=== PATIENT | male | born 1955 | race Caucasian/White ===

== ENCOUNTER 2022-12-24 09:42 | Outpatient (OUT) | payer MEDICARE, SELFPAY ==
[2022-12-24 10:26] LABS: Basophils Percent Auto 0.5 % (0.2-2.0); Eosinophils Absolute Auto 0.2 10^3/uL (0.0-0.7); Eosinophils Percent Auto 2.2 % (0.9-7.0); Hematocrit 41.8 % (42.0-54.0); Hemoglobin 13.8 g/dL (14.0-18.0); Immature Granulocytes Abs Auto 0.03 10^3/uL (0.00-0.03); Immature Granulocytes Pct Auto 0.4 % (0.0-0.5); Lymphocytes Absolute Auto 1.6 10^3/uL (1.2-3.8); Lymphocytes Percent Auto 19.7 % (20.5-60.0); Mean Corpuscular Hemoglobin 31.8 pg (25.9-34.0); Mean Corpuscular Volume 96.3 fL (80.0-94.0); Mean Platelet Volume 10.7 fL (9.5-13.5); Monocytes Absolute Auto 0.6 10^3/uL (0.3-0.8); Monocytes Percent Auto 6.9 % (1.7-12.0); Neutrophils Absolute Auto 5.8 10^3/uL (1.4-6.5); Neutrophils Percent Auto 70.3 % (43.0-75.0); Platelet Count 234 10^3/uL (150-450); Red Blood Count 4.34 10^6/uL (4.70-6.10); Red Cell Distribution Width 12.8 % (11.0-15.0); White Blood Count 8.3 10^3/uL (4.0-11.0)
[2022-12-24 10:41] LABS: Estimated Average Glucose 105 mg/dL; Glycohemoglobin A1C 5.3 % (4.5-6.2)
[2022-12-24 10:53] LABS: Alanine Aminotransferase 30 U/L (16-63); Albumin Level 3.8 g/dL (3.4-5.0); Alkaline Phosphatase 61 U/L (46-116); Anion Gap 11.1; Aspartate Amino Transferase 23 U/L (15-37); BUN Creatinine Ratio 23.7; Bilirubin Total 0.5 mg/dL (0.2-1.0); Calcium 9.1 mg/dL (8.5-10.1); Carbon Dioxide 26.8 mmol/L (21.0-32.0); Chloride 107 mmol/L (98-107); Chol HDL Ratio 3.9; Cholesterol 178 mg/dL (<=200); Estimated GFR (African America >60 (>=60); Estimated GFR (Non-African Ame >60 (>=60); Globulin 3.7 g/dL; Glucose 103 mg/dL (74-106); HDL Cholesterol 46 mg/dL (40-60); LDL Cholesterol Calculated 110.6 mg/dL; Potassium 4.9 mmol/L (3.5-5.1); Sodium 140 mmol/L (136-145); Thyroid Stimulating Hormone 2.363 uIU/mL (0.358-3.740); Total Protein 7.5 g/dL (6.4-8.2); Triglycerides 107 mg/dL (<=150); VLDL CHOLESTEROL 21.4 mg/dL
[2022-12-24 11:31] LABS: Free T4 0.73 ng/dL (0.76-1.46)
[2022-12-24 11:37] LABS: Prostate Specific Antigen Scrn 0.78 ng/mL (<=4.00)
== END 2022-12-24 09:43 | disposition home or self-care (01) ==
LOC: LAB 09:46
PROVIDERS: PCP Family Medicine; Visit Provider Family Medicine
DX: E11.9 Type 2 diabetes mellitus without complications (principal); R73.09 Other abnormal glucose; Z12.5 Encounter for screening for malignant neoplasm of prostate; Z12.12 Encounter for screening for malignant neoplasm of rectum; M25.50 Pain in unspecified joint
CPT/HCPCS: 36415; 80053; 80061; 83036; 84436; 84439; 84443; 85025; G0103

== ENCOUNTER 2024-11-02 09:17 | Outpatient (OUT) | payer MEDICARE, SELFPAY ==
[2024-11-02 10:01] LABS: Basophils Percent Auto 0.6 % (0.2-2.0); Eosinophils Absolute Auto 0.2 10^3/uL (0.0-0.7); Eosinophils Percent Auto 3.3 % (0.9-7.0); Hematocrit 40.6 % (42.0-54.0); Hemoglobin 13.6 g/dL (14.0-18.0); Immature Granulocytes Abs Auto 0.04 10^3/uL (0.00-0.03); Immature Granulocytes Pct Auto 0.6 % (0.0-0.5); Lymphocytes Absolute Auto 1.7 10^3/uL (1.2-3.8); Lymphocytes Percent Auto 25.3 % (20.5-60.0); Mean Corpuscular HGB Conc 33.5 g/dL (29.9-35.2); Mean Corpuscular Hemoglobin 32.5 pg (25.9-34.0); Mean Corpuscular Volume 96.9 fL (80.0-94.0); Mean Platelet Volume 10.3 fL (9.5-13.5); Monocytes Absolute Auto 0.6 10^3/uL (0.3-0.8); Monocytes Percent Auto 8.4 % (1.7-12.0); Neutrophils Absolute Auto 4.1 10^3/uL (1.4-6.5); Neutrophils Percent Auto 61.8 % (43.0-75.0); Platelet Count 249 10^3/uL (150-450); Red Blood Count 4.19 10^6/uL (4.70-6.10); Red Cell Distribution Width 12.6 % (11.0-15.0); White Blood Count 6.6 10^3/uL (4.0-11.0)
[2024-11-02 10:11] LABS: Estimated Average Glucose 114 mg/dL; Glycohemoglobin A1C 5.6 % (4.5-6.2)
[2024-11-02 10:51] LABS: Alanine Aminotransferase 26 U/L (16-63); Albumin Globulin Ratio 1.1; Albumin Level 3.5 g/dL (3.4-5.0); Alkaline Phosphatase 58 U/L (46-116); Anion Gap 11.8; Aspartate Amino Transferase 18 U/L (15-37); BUN Creatinine Ratio 20.2; Bilirubin Total 0.5 mg/dL (0.2-1.0); Calcium 8.8 mg/dL (8.5-10.1); Carbon Dioxide 26.6 mmol/L (21.0-32.0); Chloride 106 mmol/L (98-107); Chol HDL Ratio 3.6; Cholesterol 176 mg/dL (<=200); Estimated GFR (African America >60 (>=60 mL/min/1.73m^2); Estimated GFR (Non-African Ame >60 (>=60 mL/min/1.73m^2); Free T3 2.42 pg/mL (2.18-3.98); Globulin 3.2 g/dL; Glucose 102 mg/dL (74-106); HDL Cholesterol 49 mg/dL (40-60); LDL Cholesterol Calculated 111.2 mg/dL; Potassium 4.4 mmol/L (3.5-5.1); Sodium 140 mmol/L (136-145); Thyroid Stimulating Hormone 3.632 uIU/mL (0.358-3.740); Total Protein 6.7 g/dL (6.4-8.2); Triglycerides 79 mg/dL (<=150); VLDL CHOLESTEROL 15.8 mg/dL
[2024-11-02 10:55] LABS: Prostate Specific Antigen Scrn 0.74 ng/mL (<=4.00)
== END 2024-11-02 09:18 | disposition home or self-care (01) ==
LOC: LAB 09:20
PROVIDERS: PCP Family Medicine; Visit Provider Family Medicine
DX: R00.2 Palpitations (principal); E11.9 Type 2 diabetes mellitus without complications; Z12.5 Encounter for screening for malignant neoplasm of prostate; M54.16 Radiculopathy, lumbar region
CPT/HCPCS: 36415; 80053; 80061; 83036; 84436; 84443; 84481; 85025; G0103

== ENCOUNTER 2024-11-04 11:15 | Outpatient (REF) | payer MEDICARE, SELFPAY ==
[2024-11-04 13:42] LABS: Internal Control Within Normal Limits; Occult Blood Positive
== END 2024-11-04 11:16 | disposition home or self-care (01) ==
LOC: LAB 11:15
PROVIDERS: PCP Family Medicine; Visit Provider Family Medicine
DX: R00.2 Palpitations (principal); E11.9 Type 2 diabetes mellitus without complications; M54.16 Radiculopathy, lumbar region
CPT/HCPCS: G0328

== ENCOUNTER 2024-11-24 10:35 | Outpatient (OUT) | payer MEDICARE, SELFPAY ==
--- OUTSIDE RECORDS SUMMARY | 2024-11-24 10:37 | XMS_ITS | Encounter Summary ---
Author Organization [facility] Address [address] [place] [address] Care Team Providers Care Fabricator Foam Rubber Name Role Phone Unavailable Primary Care Provider Unavailabl e Source Comments In the event this information is protected by the Federal Confidentiality of Alcohol and Drug AbusePatient Records regulations: The Federal rules restrict any use of the information to criminally investigate or prosecute any alcohol or drug abuse patient.[facility] Encounter Details Date Type Department Care Team (Late st Contact Info) Description 2021 [place] [address] Provider, [facility] Medicare Coverage of Physical Exams Social History Tobacco Use Types Packs/Day Years Used Date Smoking Tobacco: Never Smokeless Tobacco: Never Alcohol Use Standard Drinks/Week Comments Not Currently 0 (1 standard drink = 0.6 oz pur e alcohol) PHQ-2 Answer Date Recorded PHQ-2 score 0 09/18/2021 Sex and Gender Information Value Date Recorded Sex Assigned at Male 08/03/2021 4:29 PM EST Legal Sex Male 3:44 PM EST Gender Identity Male 08/03/2021 4:29 PM EST Sexual Orientation Straight 08/03/2021 4: 29 PM EST documented as of this encounter Plan of Treatment Not on file documented as of this encounter Visit Diagnoses Not on filedocumented in this encounter
--- OUTSIDE RECORDS SUMMARY | 2024-11-24 10:38 | XMS_ITS | Encounter Summary ---
Author Organization [facility] Rodriguezsoph[facility] Address [address] [place] [address] Care Team Providers Care Clothing Patternmaker Name Role Phone Ashutosh Faclon MD Primary Care Provider [phone] Encounter Details Date Type Department Care Team (Late st Contact Info) Description 01/14/2013 Post-op Telephone [facility] General Surgery [address] [place], [place] [id number] Romy Santana RN Social History Tobacco Use Types Packs/Day Years Used Date Smoking Tobacco: Never Alcohol Use Standard Drinks/Week Comments No 0 (1 standard drink = 0.6 oz pur e alcohol) Sex and Gender Information Value Date Recorded Sex Assigned at Not on file Legal Sex Male 5:45 PM EST Gender Identity Not on file Sexual Orientation Not on file documented as of this encounter Plan of Treatment Not on file documented as of this encounter Visit Diagnoses Not on filedocumented in this encounter Care Teams Clothing Patternmaker Relationship Specialty Start Date End Date Ashutosh Falcon MD [address] [place] [address] PCP - General 01/12/13 documented as of this encounter
--- OUTSIDE RECORDS SUMMARY | 2024-11-24 10:38 | XMS_ITS | Clinical Summary ---
Author Organization [facility] Address [address] [place] [address] Care Team Providers Care Manager Plumbing Name Role Phone Unavailable Primary Care Provider Unavailabl e Allergies No known active allergies Medications diclofenac, EC, (VOLTAREN) 75 mg EC tablet 07/12/2021 Active minocycline (MINOCIN, DYNACIN) 100 mg capsule 07/12/2021 Active tiZANidine (ZANAFLEX) 4 mg tablet Take 8 mg by mouth daily at bedtime. 07/03/2021 Active gabapentin (NEURONTIN) 300 mg capsule Take 1 capsule by mouth three times daily for 30 days. 90 capsule 08/03/2021 Active Immunizations Immunization Administration Dates Next Due COVID-19 vaccine (ARAVIND) 05/03/2021,08/31/2020 Social History Tobacco Use Types Packs/Day Years [...] Orientation Straight 08/03/2021 4: 29 PM EST Last Filed Vital Signs Vital Sign Reading Time Taken Comments Blood Pressure 162/91 08/03/2021 11:25 AM EST patient states he is feeling anxious Pulse 76 08/03/2021 11:25 AM EST Temperature - - Respiratory Rate 16 08/03/2021 11:2 5 AM EST Oxygen Saturation 97% 08/03/2021 11: 25 AM EST Inhaled Oxygen Concentration - - Weight 118.8 kg (262 lb) 08/03/2021 11: 25 AM EST Height 179.1 cm (5' 10.5 ) 08/03/2021 1 1:25 AM EST Body Mass Index 37.06 08/03/2021 11:25 AM EST Plan of Treatment Health Maintenance Due Date Last Done Comments Anxiety Screening 1974 Depression Screening 1974 Hepatitis C Screening 1974 DTaP,Tdap,Td Vaccine (1 - Tdap) 10/27/1975 Lipid Screening 10/27/1991 CT Colonography 2001 Cologuard (FIT-DNA) 2001 Colonoscopy 2001 Colorectal Cancer Screening 2001 Fecal Occult Blood 2001 Prostate Cancer Screening Discussion 2001 Sigmoidoscopy 2001 Diabetes Screening 06/11/2021 06/11/2018, 1 08/11/2017, 06/09/2018 Shingrix Vaccine (2 of 2) 07/03/2021 05/08/2021 Pneumococcal Vaccine: 50+ (2 of 2 - PPSV23) 06/14/2022 06/14/2021 Covid-19 Vaccine (3 - season) 02/23/202403/2021, 08/31/2020 Advance Directive Discussion 06/24/2024 Influenza Vaccine (Season Ended) 2025 05/08/20 21 RSV Vaccine (1 - 1-dose 75+ series) 10/27/2031 Insurance MMO [employer]
--- OUTSIDE RECORDS SUMMARY | 2024-11-24 10:38 | XMS_ITS | Clinical Summary ---
Author Organization Jaxson Guerrero [facility] Address [address] [place] [address] Care Team Providers Care Fleet Sales Associate Name Role Phone Ashutosh Falcon MD Primary Care Provider [phone] Allergies No known active allergies Medications cyclopentolate (CYCLOGYL) 2 % ophthalmic solution Place 1 drop into the right eye 2 times daily. 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 Social History Tobacco Use Types Packs/Day Years Used Date Smoking Tobacco: Never Alcohol Use Standard Drinks/Week Comments No 0 (1 standard drink = 0.6 oz pur e alcohol) Sex and Gender Information Value Date Recorded Sex Assigned at Not on file Legal Sex Male 5:45 PM EST Gender Identity Not on file Sexual Orientation Not on file Last Filed Vital Signs Vital Sign Reading Time Taken Comments Blood Pressure 142/87 06/11/2018 11:00 AM EST Pulse 71 06/11/2018 11:00 AM EST Temperature 36.9 C (98.4 F) 06/11/2018 11:00 AM EST Respiratory Rate 16 06/11/2018 11:0 0 AM EST Oxygen Saturation 96% 06/11/2018 2:53 AM EST Inhaled Oxygen Concentration - - Weight 125.4 kg (276 lb 7.3 oz) 06/10/2018 5:45 AM EST Height 180.3 cm (5' 11 ) 06/09/2018 12: 45 AM EST Body Mass Index 38.56 06/09/2018 12:45 AM EST Plan of Treatment Not on file Insurance Advance Directives * Full Code (Latest Code Status on File) Date Activated Date Inactivated Comments 06/09/2018 1:22 AM 06/11/2018 3:22 PM Care Teams Fleet Sales Associate Relationship Specialty Start Date End Date Ashutosh Falcon MD [address] [place] [address] PCP - General 01/12/13
== END 2024-11-24 10:36 | disposition home or self-care (01) ==
LOC: PST 10:35
PROVIDERS: PCP Family Medicine; Visit Provider Surgery
DX: Z01.818 Encounter for other preprocedural examination (principal); R19.5 Other fecal abnormalities; Z12.11 Encounter for screening for malignant neoplasm of colon

== ENCOUNTER 2024-12-02 08:02 | Day surgery (SDC) | payer MEDICARE, SELFPAY ==
--- OUTSIDE RECORDS SUMMARY | 2024-11-02 10:15 | XMS_ITS ---
Author Organization [facility] in [place] Address [address] [place] [address] Care Team Providers Care Field Test Engineer Name Role Phone José Falcon Primary Care Provider REASON FOR VISIT review labs Problems Problem Type SNOMED Code ICD Code Onset Dates Problem Status W/U Status Risk Notes Problem Laboratory test result abnormal ([id number]) Abnormal laboratory test result (R89.9) Active confirmed Encounters Encounter Location Date Provider Diagnosis [facility] [address] [place] [address] 11/02/2024 José Falcon Abnormal laboratory test result R89.9 Assessments Encounter Date Diagnosis (ICD Code) Assessment Notes Treatment Notes Treatment Clinical Notes Section Notes 11/02/2024 Abnormal laboratory test result (ICD-10 - R89.9) Plan Of Treatment Pending Test Test Name Order Date THYROID PANEL (T4/TSH/FREE T3) Progress Notes * Mor MALLOY BDOB: [birth year] (69 yo M)Acc No.[id number]:11/02/2024 Patient: Jacqueline MEZA Mor Monroy :1955 A ge:69 Y S ex:Male Address:[address] [place] [address] Subjective: * Chief Complaints: * R eview labs * Medical History: * Surgical History: * Hospitalization/Major Diagno stic Procedure: * Medications: Objective: * Vitals: * Physical Examination: Assessment: * Assessment: 1. A bnormal laboratory test result - R89.9 (Primary) Plan: * Treatment: * Procedure Codes: * true * Date: Generated for Gallito weaver/Erica/Yazan on: 12/02/2024 08:05 AM EDT
--- OUTSIDE RECORDS SUMMARY | 2024-11-04 15:34 | XMS_ITS ---
Author Organization [facility] in [place] Address [address] [place] [address] Care Team Providers Care Real Estate Associate Name Role Phone MingJosé barrett Primary Care Provider [phone] Reason For Referral Diagnosis 1 Positive occult stoo l blood test (R19.5) Referral Organization [facility] Referring Provider First Name José Referring Provider Last Name Terrie Referring Provider [facility] dalia Referred Provider Samy Caldera Referred Provider Specialty General Surg promise Referral Priority Routine REASON FOR VISIT stool test Encounters Encounter Location Date Provider Diagnosis [facility] [address] [place] [address] 11/04/2024 José Falcon Positive occult stoo l blood test R19.5 Assessments Encounter Date Diagnosis (ICD Code) Assessment Notes Treatment Notes Treatment Clinical Notes Section Notes 11/04/2024 Positive occult stool blood test (ICD-10 - R19.5) Plan Of Treatment Referrals Referral Date Details 11/05/2024 11/05/2024Samy Progress Notes * oMr TURCIOS BDOB: [birth year] (69 yo M)Acc No.[id number]:11/04/2024 Patient: Jacqueline Mor MEZA :1955 A ge:69 Y S ex:Male Address:[address] [place] [address] Subjective: * Chief Complaints: * S tool test * Medical History: * Surgical History: * Hospitalization/Major Diagno stic Procedure: * Medications: Objective: * Vitals: * Physical Examination: Assessment: * Assessment: 1. P ositive occult stool blood test - R19.5 (Primary) Plan: * Treatment: * Procedure Codes: * true * Date: Generated for Gallito weaver/Erica/Ivonneitting on: 0 12/02/2024 08:05 AM EDT Consultation Request Notes Referral Date Referring Provider Referred Provider Not es 11/05/2024 José Falcon Michael
--- OUTSIDE RECORDS SUMMARY | 2024-11-16 08:09 | XMS_ITS ---
Author Organization The [facility] in [place] Address [address] [place] [address] Care Team Providers Care Head Sampler Name Role Phone José Falcon Primary Care Provider REASON FOR VISIT Update Demographics - Additional Info Encounters Encounter Location Date Provider Diagnosis [facility] [address] [place] [address] 11/16/2024 José Falcon Plan Of Treatment No Information Progress Notes * Mor MALLOY BDOB: [birth year] (69 yo M)Acc No.[id number]:11/16/2024 Patient: Jacqueline REIDMaxMor :1955 A ge:69 Y S ex:Male Address:[address] [place] [address] * true * Date: Generated for Mitcheli ng/Faghassang/eTransmitting on: 0 12/02/2024 08:04 AM EDT
--- NOTE | 2024-12-02 | OP_ITS ---
OPERATION DATE: 12/02/2024 PREOPERATIVE DIAGNOSIS: Positive fecal occult blood test. POSTOPERATIVE DIAGNOSIS: Normal colonoscopy to cecum, fair prep. PROCEDURE: Colonoscopy to cecum. SURGEON: Samy Caldera M.D. ANESTHESIA: Monitored anesthesia care. ESTIMATED BLOOD LOSS: Zero. INDICATIONS AND CONSENT: Patient is a 69-year-old male, presents for colorectal screening after positive fecal occult blood test. Indications, risks, benefits, alternatives of proceeding with colonoscopy were explained extensively to the patient, including the risks of bleeding, colon perforation or anesthetic complications. All of his questions were answered. Informed consent was obtained. PROCEDURE: Patient brought to the operating room, placed in the left lateral decubitus position. Monitored anesthesia care was provided. Rectal exam was performed which revealed no masses or blood. The scope was inserted into the anal canal. Under direct visualization was advanced. With the aid of abdominal compression, it was advanced to the cecum where cecal markings were clearly identified. There was noted to be a fair prep with liquid and particulate matter throughout the colon that was able to be partially irrigated clear. There were no mass lesions or polyps. No inflammatory changes or ulcerations. No significant diverticulosis. The scope was retroflexed in the anal canal. There was no significant hemorrhoidal disease. Scope was then withdrawn. Patient tolerated procedure well, was sent to recovery room in good condition.f/u screening colonoscopy should be in 10 years. CC: Tashi Beck
--- OUTSIDE RECORDS SUMMARY | 2024-12-02 08:06 | XMS_ITS | Patient Health Record ---
Author Organization [facility] in [place] Address [address] [place] [place] [address] Care Team Providers Care Lead Android Developer Name Role Phone José Falcon Primary Care Provider Allergies No Known Allergies Results Component Value Reference Range Notes GLYCOHEMOGLOBIN A1C Reviewed date:11/02/2024 02:16:28 PM Interpretation: Performing Lab: Notes/Report: [facility] , Glycohemoglobin A1C 5.6 4.5-6.2 % ADA THERAPEUTIC TARGET < 7.0 ADA RECOMMENDED LIMIT 4.0 - 6.0 > 7.0 ACTION SUGGESTED Estimated Average Glucose 114 Performing Lab: see note ML - [facility] LB TSH Reviewed date:11/02/2024 02:16:28 PM Interpretation: Performing Lab: Notes/Report: [facility] , Thyroid Stimulating Hormone 3.632 0.358-3.740 u IU/mL Performing Lab: see note ML - [facility] LB T4 Reviewed date:11/02/2024 02:16:28 PM Interpretation: Performing Lab: Notes/Report: [facility] , T4 Thyroxine 4.40 4.50-12.10 ug/dL Performing Lab: see note ML - [facility] LB LIPID PROFILE Reviewed date:11/02/2024 02:16:28 PM Interpretation: Performing Lab: Notes/Report: [facility] , Triglycerides 79 <=150 mg/dL Cholesterol 176 <=200 mg/dL HDL Cholesterol 49 40-60 mg/dL > or =60 mg/dl - LOW CARDIOVASCULAR RISK <40 mg/dl - HIGH CARDIOVASCULAR RISK LDL Cholesterol Calculated 111.2 130-159 mg/dl BORDERLINE HIGH 100-129 mg/dl NEAR OR ABOVE OPTIMAL >190 mg/dl VERY HIGH <100 mg/dl OPTIMAL 160-189 mg/dl HIGH VLDL CHOLESTEROL 15.8 Chol HDL Ratio 3.6 3.3 - 4.4 LOW RISK 7.1 - 11.0 MODERATE RISK 4.4 - 7.1 AVERAGE RISK >11.0 HIGH RISK Performing Lab: see note ML - [facility] LB FREE T3 Reviewed date:11/02/2024 02:16:27 PM Interpretation: Performing Lab: Notes/Report: [facility] , Free T3 2.42 2.18-3.98 pg/mL Performing Lab: see note ML - [facility] LB CBC AUTO DIFF Reviewed date:11/02/2024 02:16:27 PM Interpretation: Performing Lab: Notes/Report: [facility] , White Blood Count 6.6 4.0-11.0 10 3/uL Red Blood Count 4.19 4.70-6.10 10 6/uL Hemoglobin 13.6 14.0-18.0 g/dL Hematocrit 40.6 42.0-54.0 % Mean Corpuscular Volume 96.9 80.0-94.0 fL Mean Corpuscular Hemoglobin 32.5 25.9-34.0 pg Mean Corpuscular HGB Conc 33.5 29.9-35.2 g/dL Red Cell Distribution Width 12.6 11.0-15.0 % Platelet Count 249 150-450 10 3/uL Mean Platelet Volume 10.3 9.5-13.5 fL Neutrophils Percent Auto 61.8 43.0-75.0 % Lymphocytes Percent Auto 25.3 20.5-60.0 % Monocytes Percent Auto 8.4 1.7-12.0 % Eosinophils Percent Auto 3.3 0.9-7.0 % Basophils Percent Auto 0.6 0.2-2.0 % Immature Granulocytes Pct Auto 0.6 0.0-0.5 % Neutrophils Absolute Auto 4.1 1.4-6.5 10 3/uL Lymphocytes Absolute Auto 1.7 1.2-3.8 10 3/uL Monocytes Absolute Auto 0.6 0.3-0.8 10 3/uL Eosinophils Absolute Auto 0.2 0.0-0.7 10 3/uL Basophils Absolute Auto 0.0 0.0-0.1 10 3/uL Immature Granulocytes Abs Auto 0.04 0.00-0.03 10 3/uL Performing Lab: see note ML - [facility] LB Occult Blood* Reviewed date:11/04/2024 07:34:44 PM Interpretation: Performing Lab: Notes/Report: [facility] , Occult Blood Positive Performing Lab: see note - [facility] PSA SCREENING Reviewed date:11/02/2024 02:16:28 PM Interpretation: Performing Lab: Notes/Report: [facility] , Prostate Specific Antigen Scrn 0.74 <=4.00 ng/mL Performing Lab: see note - [facility] PROF 14(COMP METB) Reviewed date:11/02/2024 02:16:28 PM Interpretation: Performing Lab: Notes/Report: [facility] , Sodium 140 136-145 mmol/L Potassium 4.4 3.5-5.1 mmol/L Chloride 106 98-107 mmol/L Carbon Dioxide 26.6 21.0-32.0 mmol/L Anion Gap 11.8 Glucose 102 74-106 mg/dL Blood Urea Nitrogen 19.0 7.0-18.0 mg/dL Creatinine 0.94 0.70-1.30 mg/dL Estimated GFR ( Verenice >60 >=60 mL/min/1.73m 2 Estimated GFR (Non- Vanessa >60 >=60 mL/min/1.73m 2 BUN Creatinine Ratio 20.2 Calcium 8.8 8.5-10.1 mg/dL Bilirubin Total 0.5 0.2-1.0 mg/dL Aspartate Amino Transferase 18 15-37 U/L Alanine Aminotransferase 26 16-63 U/L Alkaline Phosphatase 58 46-116 U/L Total Protein 6.7 6.4-8.2 g/dL Albumin Level 3.5 3.4-5.0 g/dL Globulin 3.2 Albumin Globulin Ratio 1.1 Performing Lab: see note ML - [facility] Reason For Referral Diagnosis 1 Positive occult stoo l blood test (R19.5) Referral Organization [facility] Referring Provider First Name José Referring Provider Last Name Terrie Referring Provider Speciality Family Med dalia Referred Provider Samy Caldera Referred Provider Specialty General Surg promise Referral Priority Routine Medications Medication SIG (Take, Route, Fr equency, Duration) Notes Start Date End Date Status Baclofen 20 MG TAKE ONE TO TWO TABL ETS BY MOUTH AT BEDTIME for 90 Active Diclofenac Sodium 75 MG TAKE 1 TABLET TW ICE A DAY for 90 days Active Social History Tobacco Use: Social History Observation Description Date Details (start date - stop date) Never Smoker NA - NA Tobacco Use/Smoking Question Answer Notes Patient is a nonsmoker Alcohol Screen (Audit-C) Question Answer Notes Did you have a drink containing alcohol in the p ast year? No Points 0 Interpretation Negative AUDIT-C (Standard) Question Answer Notes Did you have a drink containing alcohol in the p ast year? No Points 0 Interpretation Negative Problems Problem Type SNOMED Code ICD Code Onset Dates Problem Status W/U Status Risk Notes Problem Attention deficit hyperactivity disorder (097789795) ADHD (attention deficit hyperactivity disorder) (314.01) Active confirmed Problem Palpitations (06729674) Palpitations (R00.2) Active confirmed Problem Eczema (59608676) Eczema (L30.9) Active confirm ed Problem Lumbar radiculopathy (726350974) Radiculopathy of lumbar region (M54.16) Active confirmed Problem Arthralgia (85431675) Arthralgia (M25.50) Active confirmed Problem Localized, primary osteoarthritis of the pelvic region and thigh (009080816) Primary osteoarthritis of left hip (M16.12) Active confirmed Problem Acne rosacea (616672573) Acne rosacea (L71.9) Active confirmed Problem Laboratory test result abnormal (732500337) Abnormal laboratory test result (R89.9) Active confirmed Problem Osteoarthritis of knee (294507741) Knee osteoarthritis (M17.10) Active confirmed Problem Diabetes mellitus (55803213) Diabetes mellitus (E11.9) Active confirmed Problem 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, 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 Vital Signs Blood pressure diastolic 86 mm Hg 11/02/2024 Height 70 in 11/02/2024 Blood pressure systolic 138 mm Hg 11/02/2024 Weight 257 lbs 11/02/2024 BMI 36.87 kg/m2 11/02/2024 Encounters Encounter Location Date Provider Diagnosis [facility] [address] [place] [address] 01/13/2024 José Falcon [facility] [address] [facility] [place] [address] 04/08/2024 José Falcon [facility] [address] [facility] [place] [address] 11/02/2024 José Falcon Abnormal laboratory test result R89.9 [facility] [address] [place] [address] 11/04/2024 José Falcon Positive occult stoo l blood test R19.5 [facility] [address] [facility] [place] [address] 11/16/2024 José Falcon [facility] [address] [place] [address] 11/02/2024 José Falcon Palpitations R00.2 ; Diabetes mellitus E11.9 and Radiculopathy of lumbar region M54.16 Assessments Encounter Date Diagnosis (ICD Code) Assessment Notes Treatment Notes Treatment Clinical Notes Section Notes 11/02/2024 Palpitations (ICD-10 - R00.2) 11/02/2024 Diabetes mellitus (ICD-10 - E11.9) 11/02/2024 Abnormal laboratory test result (ICD-10 - R89.9) 11/04/2024 Positive occult stool blood test (ICD-10 - R19.5) 11/02/2024 Radiculopathy of lumbar region (ICD-10 - M54.16) Plan Of Treatment Pending Test Test Name Order Date CMP (COMPLETE METABOLIC PANEL) 3 HEMOGLOBIN A1C (GLYCO) 12/24/2022 HEMOGLOBIN A1C (GLYCO) 11/02/2024 LIPID PANEL (CHOL/TRIG/HDL/LDL) 11/03/19 25 LIPID PANEL (CHOL/TRIG/HDL/LDL) 12/25/19 23 CBC WITH DIFF 12/24/2022 PSA, PROSTATE-SPECIFIC ANTIGEN 3 STOOL OCCULT BLOOD 12/24/2022 STOOL OCCULT BLOOD 11/02/2024 THYROID PANEL (T4/TSH/FREE T3) 5 THYROID PANEL (T4/TSH/FREE T3) 5 THYROID PANEL (T4/TSH/FREE T3) 3 PSA, SCREENING 11/02/2024 CMP (COMP MET SHEETS) w/eGFR CKD-EPI 2024 CBC WITH DIFF 11/02/2024 Insurance Providers Payer Name Payer Address Payer Phone Subscriber Number Group Number Insured Name Patient Relationship to Insured Coverage Start Date Coverage End Date [employer] PPO PLUS LOCAL PLAN [address] [place] [address] [phone] [id number] Mor Malloy Self - patient is the insured Medical (General) History Medical History History ICD Code Acne rosacea L71.9 ADHD (attention deficit hyperactivity di sorder) 314.01 Amputation of finger without complicatio n, initial encounter S68.119A Arthralgia M25.50 Eczema L30.9 Diabetes mellitus E11.9 Palpitations R00.2 Shingles B02.9 spondylolisthesis rheumatic fever Surgical History Surgery Date(Month/Year) Cataract Extraction Right Meniscus Repair Rt rotator cuff repair Lt rotator cuff repair history of tonsillectomy right total knee arthroplasty, surgeon Austin Jensen
[2024-12-02 08:10] VITALS: BP 108/71; PULSE 71; TEMP 36.2; O2SAT 98; BMI 34.2
[2024-12-02] MEDS: 0.9 % SODIUM CHLORIDE 500 ML 50 ML IV ×2 (08:25→10:11)
[2024-12-02 10:14] VITALS: BP 105/73; PULSE 80; O2SAT 95
[2024-12-02 10:29] VITALS: BP 111/68; PULSE 65; O2SAT 95
== END 2024-12-02 11:20 | disposition home or self-care (01) ==
LOC: SURGOUT 08:03
PROVIDERS: PCP Family Medicine; Visit Provider Surgery
PROC: (CPT 45378; principal; 2024-12-02 09:20)
DX: R19.5 Other fecal abnormalities (principal); M47.816 Spondylosis without myelopathy or radiculopathy, lumbar region; L30.9 Dermatitis, unspecified; Z96.619 Presence of unspecified artificial shoulder joint
CPT/HCPCS: 45378; J2704

== ENCOUNTER 2024-12-10 12:21 | Outpatient (OUT) | payer MEDICARE, SELFPAY ==
--- OUTSIDE RECORDS SUMMARY | 2024-11-02 10:15 | XMS_ITS ---
Author Organization The [facility] in [place] Address [address] [place] [address] Care Team Providers Care Tax Technician Name Role Phone José Falcon Primary Care Provider REASON FOR VISIT review labs Problems Problem Type SNOMED Code ICD Code Onset Dates Problem Status W/U Status Risk Notes Problem Abnormal laboratory test result (R89.9) Active confirmed Encounters Encounter Location Date Provider Diagnosis [facility] [address] [place] [address] 11/02/2024 José Falcon Abnormal laboratory test result R89.9 Assessments Encounter Date Diagnosis (ICD Code) Assessment Notes Treatment Notes Treatment Clinical Notes Section Notes 11/02/2024 Abnormal laboratory test result (ICD-10 - R89.9) Plan Of Treatment Pending Test Test Name Order Date THYROID PANEL (T4/TSH/FREE T3) Progress Notes * Mor MALLOY BDOB: [birth year] (69 yo M)Acc No.[id number]:11/02/2024 Patient: Jacqueline MEZA Mor Monroy :1955 A ge:69 Y S ex:Male Address:[address] [place] [address] Subjective: * Chief Complaints: * R eview labs * Medical History: * Surgical History: * Hospitalization/Major Diagno stic Procedure: * Medications: Objective: * Vitals: * Physical Examination: Assessment: * Assessment: 1. A bnormal laboratory test result - R89.9 (Primary) Plan: * Treatment: * Procedure Codes: * true * Date: Generated for Gallito waever/Erica/Yazan on: 0 12/10/2024 12:25 PM EDT
--- OUTSIDE RECORDS SUMMARY | 2024-11-04 15:34 | XMS_ITS ---
Author Organization [facility] in [place] Address [address] [place] [address] Care Team Providers Care Frame Coverer Name Role Phone MingJosé barrett Primary Care Provider Reason For Referral Diagnosis 1 Positive occult stoo l blood test (R19.5) Referral Organization [facility] Referring Provider First Name José Referring Provider Last Name Terrie [facility] dalia Referred Provider Samy Caldera Referred Provider Specialty General Surg promise Referral Priority Routine REASON FOR VISIT stool test Encounters Encounter Location Date Provider Diagnosis [facility] [address] [place] [address] 11/04/2024 José Falcon Positive occult stoo l blood test R19.5 Assessments Encounter Date Diagnosis (ICD Code) Assessment Notes Treatment Notes Treatment Clinical Notes Section Notes 11/04/2024 Positive occult stool blood test (ICD-10 - R19.5) Plan Of Treatment Referrals Referral Date Details 11/05/2024 11/05/2024Samy Progress Notes * Mor TURCIOS BDOB: [birth year] (69 yo M)Acc No.[id number]:11/04/2024 Patient: Jacqueline Mor MEZA :1955 A ge:69 Y S ex:Male Address:[address] [place] [address] Subjective: * Chief Complaints: * S tool test * Medical History: * Surgical History: * Hospitalization/Major Diagno stic Procedure: * Medications: Objective: * Vitals: * Physical Examination: Assessment: * Assessment: 1. P ositive occult stool blood test - R19.5 (Primary) Plan: * Treatment: * Procedure Codes: * true * Date: Generated for Gallito weaver/Erica/Ivonneitting on: 0 12/10/2024 12:25 PM EDT Consultation Request Notes Referral Date Referring Provider Referred Provider Not 11/05/2024 José Falcon Michael
--- OUTSIDE RECORDS SUMMARY | 2024-12-10 12:26 | XMS_ITS | Patient Health Record ---
Author Organization [facility] in [place] Address [address] [place] [address] Care Team Providers Care Cooler Service Supervisor Name Role Phone José Falcon Primary Care Provider Allergies No Known Allergies Results Component Value Reference Range Notes GLYCOHEMOGLOBIN A1C Reviewed date:11/02/2024 02:16:28 PM Interpretation: Performing Lab: Notes/Report: [facility] , Glycohemoglobin A1C 5.6 4.5-6.2 % ADA RECOMMENDED LIMIT 4.0 - 6.0 ADA THERAPEUTIC TARGET < 7.0 ACTION SUGGESTED > 7.0 Estimated Average Glucose 114 Performing Lab: see note - [facility] LB PSA SCREENING Reviewed date:11/02/2024 02:16:28 PM Interpretation: Performing Lab: Notes/Report: [facility] , Prostate Specific Antigen Scrn 0.74 <=4.00 ng/mL Performing Lab: see note ML - [facility] LB Occult Blood* Reviewed date:11/04/2024 07:34:44 PM Interpretation: Performing Lab: Notes/Report: [facility] , Occult Blood Positive Performing Lab: see note - [facility] LB CBC AUTO DIFF Reviewed date:11/02/2024 02:16:27 PM Interpretation: Performing Lab: Notes/Report: [facility] , White Blood Count 6.6 4.0-11.0 [...] 3/uL Performing Lab: see note ML - [facility] LB TSH Reviewed date:11/02/2024 02:16:28 PM Interpretation: Performing Lab: Notes/Report: [facility] , Thyroid Stimulating Hormone 3.632 0.358-3.740 u IU/mL Performing Lab: see note ML - [facility] LB T4 Reviewed date:11/02/2024 02:16:28 PM Interpretation: Performing Lab: Notes/Report: [facility] , T4 Thyroxine 4.40 4.50-12.10 ug/dL Performing Lab: see note - [facility] LB PROF 14(COMP METB) Reviewed date:11/02/2024 02:16:28 PM Interpretation: Performing Lab: Notes/Report: [facility] , Sodium 140 136-145 mmol/L Potassium [...] 1.1 Performing Lab: see note ML - [facility] LIPID PROFILE Reviewed date:11/02/2024 02:16:28 PM Interpretation: Performing Lab: Notes/Report: [facility] , Triglycerides 79 <=150 mg/dL Cholesterol 176 <=200 mg/dL HDL Cholesterol 49 40-60 mg/dL > or =60 mg/dl - LOW CARDIOVASCULAR RISK <40 mg/dl - HIGH CARDIOVASCULAR RISK LDL Cholesterol Calculated 111.2 <100 mg/dl OPTIMAL 100-129 mg/dl NEAR OR ABOVE OPTIMAL 130-159 mg/dl BORDERLINE HIGH 160-189 mg/dl HIGH >190 mg/dl VERY HIGH VLDL CHOLESTEROL 15.8 Chol HDL Ratio 3.6 3.3 - 4.4 LOW RISK 4.4 - 7.1 AVERAGE RISK 7.1 - 11.0 MODERATE RISK >11.0 HIGH RISK Performing Lab: see note ML - [facility] FREE T3 Reviewed date:11/02/2024 02:16:27 PM Interpretation: Performing Lab: Notes/Report: [facility] Free T3 2.42 2.18-3.98 pg/mL Performing Lab: see note ML - [facility] Reason For Referral Diagnosis 1 Positive occult stoo l blood test (R19.5) Referral Organization [facility] Referring Provider First Name José Referring Provider Last Name Terrie Referring Provider Speciality Family Med dalia Referred Provider Samy Hunter Referred Provider Specialty General Surg promise Referral [...] Risk Notes Problem Attention deficit hyperactivity disorder (856988094) ADHD (attention deficit hyperactivity disorder) (314.01) Active confirmed Problem Palpitations (75002572) Palpitations (R00.2) Active confirmed Problem Eczema (93549883) Eczema (L30.9) Active confirm ed Problem Lumbar radiculopathy (488793908) Radiculopathy of lumbar region (M54.16) Active confirmed Problem Arthralgia (69077152) Arthralgia (M25.50) Active confirmed Problem Localized, primary osteoarthritis of the pelvic region and thigh (018559108) Primary osteoarthritis of left hip (M16.12) Active confirmed Problem Acne rosacea (125910206) Acne rosacea (L71.9) Active confirmed Problem Laboratory test result abnormal (286462156) Abnormal laboratory test result (R89.9) Active confirmed Problem Osteoarthritis of knee (856201061) Knee osteoarthritis (M17.10) Active confirmed Problem Diabetes mellitus (46998479) Diabetes mellitus (E11.9) Active confirmed Problem 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, 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 Vital Signs Blood pressure diastolic 86 mm Hg 11/02/2024 Height 70 in 11/02/2024 Blood pressure systolic 138 mm Hg 11/02/2024 Weight 257 lbs 11/02/2024 BMI 36.87 kg/m2 11/02/2024 Procedures Procedure Date Ordered Date Performed Result Body Sit e Colonoscopy 12/02/2024 undefined Encounters Encounter Location Date Provider Diagnosis [facility] [address] [place] [address] 11/16/2024 José Falcon [facility] [address] [place] [address] 11/02/2024 José Falcon Palpitations R00.2 ; Diabetes mellitus E11.9 and Radiculopathy of lumbar region M54.16 [facility] [address] [place] [address] 01/13/2024 José Falcon [facility] [address] [place] [address] 04/08/2024 José Falcon [facility] [address] [place] [address] 11/02/2024 José Falcon Abnormal laboratory test result R89.9 [facility] [address] [place] [address] 11/04/2024 José Laiy Positive occult stoo l blood test R19.5 [...] ACCESS PPO PLUS LOCAL PLAN [address] [place] [address] [id number] Mor Malloy Self - patient is the insured Medical (General) History Medical History History ICD Code Acne rosacea L71.9 ADHD (attention deficit hyperactivity di sorder) 314.01 Amputation of finger without complicatio n, initial encounter S68.119A Arthralgia M25.50 Eczema L30.9 Diabetes mellitus E11.9 Palpitations R00.2 Shingles B02.9 spondylolisthesis rheumatic fever Surgical History Surgery Date(Month/Year) Cataract Extraction colonoscopy dr hunter 12/02/2024 right total knee arthroplasty, surgeon Austin Jensen history of tonsillectomy Lt rotator cuff repair Rt rotator cuff repair Right Meniscus Repair
--- OUTSIDE RECORDS SUMMARY | 2024-12-10 12:26 | XMS_ITS | Encounter Summary ---
Author Organization [facility] Rodriguezsoph[facility] Address [address] [place] [address] Care Team Providers Care Hvac Engineer Name Role Phone Ashutosh Falcon MD Primary Care Provider [phone] Encounter Details Date Type Department Care Team (Late st Contact Info) Description 01/14/2013 Post-op Telephone [facility] General Surgery [address] [place], [place] [id number] Romy Santana RN Social History Tobacco Use [...] on filedocumented in this encounter Care Teams Hvac Engineer Relationship Specialty Start Date End Date Ashutosh Falcon MD [address] [place] [address] PCP - General 01/12/13 documented as of this encounter
--- OUTSIDE RECORDS SUMMARY | 2024-12-10 12:26 | XMS_ITS | Clinical Summary ---
Author Organization [facility]axson Guerrero [facility] Address [address] [place] [address] Care Team Providers Care Box Press Operator Name Role Phone Ashutosh Falcon MD Primary Care Provider [phone] Allergies No known active allergies Medications cyclopentolate [...] 1:22 AM 06/11/2018 3:22 PM Care Teams Box Press Operator Relationship Specialty Start Date End Date Ashutosh Falcon MD [address] [place] [address] PCP - General 01/12/13
[2024-12-10 14:16] LABS: Free T3 2.06 pg/mL (2.18-3.98); Thyroid Stimulating Hormone 2.283 uIU/mL (0.358-3.740)
== END 2024-12-10 12:22 | disposition home or self-care (01) ==
LOC: LAB 12:23
PROVIDERS: PCP Family Medicine; Visit Provider Family Medicine
DX: R89.9 Unspecified abnormal finding in specimens from other organs, systems and tissues (principal)
CPT/HCPCS: 36415; 84436; 84443; 84481

== ENCOUNTER 2025-01-08 11:32 | Outpatient (OUT) | payer MEDICARE, SELFPAY ==
[2025-01-08 12:09] LABS: Free T3 1.85 pg/mL (2.18-3.98); Thyroid Stimulating Hormone 1.730 uIU/mL (0.358-3.740)
== END 2025-01-08 11:33 | disposition home or self-care (01) ==
PROVIDERS: PCP Family Medicine; Visit Provider Family Medicine
DX: E03.9 Hypothyroidism, unspecified (principal)
CPT/HCPCS: 36415; 84436; 84443; 84481

== ENCOUNTER 2025-02-18 13:57 | Outpatient (OUT) | payer MEDICARE, SELFPAY ==
--- OUTSIDE RECORDS SUMMARY | 2024-11-16 08:09 | XMS_ITS ---
Author Organization [facility] in [place] Address [address] [place] [address] Care Team Providers Care Package Worker Name Role Phone José Falcon Primary Care Provider REASON FOR VISIT Update Demographics - Additional Info Encounters Encounter Location Date Provider Diagnosis [facility] [address] [place] [address] 11/16/2024 José Falcon Plan Of Treatment No Information Progress Notes * Mor MALLOY BDOB: [birth year] (69 yo M)Acc No.[id number]:11/16/2024 Patient: Jacqueline REIDMaxMor :1955 A ge:69 Y S ex:Male Address:[address] [place] [address] * true * Date: Generated for Mitcheli ng/Faghassang/eTransmitting on: 0 02/18/2025 02:00 PM EDT
--- OUTSIDE RECORDS SUMMARY | 2024-12-10 15:04 | XMS_ITS ---
Author Organization [facility] in [place] Address [address] [place] [address] Care Team Providers Care Director Security Management Name Role Phone José Falcon Primary Care Provider [phone] REASON FOR VISIT t3 t4 Medications Medication SIG (Take, Route, Frequency, Duration) Notes Start Date End Date Status Levothyroxine Sodium 50 MCG 1 tablet in the morning on an empty stomach Orally Once a day for 30 days 12/11/2024 Active Problems Problem Type SNOMED Code ICD Code Onset Dates Problem Status W/U Status Risk Notes Problem Hypothyroidism (E03.9) Active confirmed Encounters Encounter Location Date Provider Diagnosis [facility] [address] [place] [address] 12/10/2024 José Falcon Hypothyroidism E03.9 Assessments Encounter Date Diagnosis (ICD Code) Assessment Notes Treatment Notes Treatment Clinical Notes Section Notes 12/10/2024 Hypothyroidism (ICD-10 - E03.9) Plan Of Treatment Medication Medication Name Sig Start Date Stop Date Notes Levothyroxine Sodium 50 MCG 1 tablet in the morning on an empty stomach Orally Once a day for 30 days 12/11/2024 Pending Test Test Name Order Date THYROID PANEL (T4/TSH/FREE T3) Progress Notes * Mor MALLOY BDOB: [birth year] (69 yo M)Acc No.[id number]:12/10/2024 Patient: Jacqueline Mor MEZA :1955 A ge:69 Y S ex:Male Address:[address] [place] [address], [place] [address] * Refills Start Levothyroxine Sodium Tablet, 50 MCG, Orally, 30, 1 tablet in the morning on an empty stomach, Once a day, 30 days, Refills=11 Subjective: * Chief Complaints: * T 3 t4 * Medical History: * Surgical History: * Hospitalization/Major Diagno stic Procedure: * Medications: Objective: * Vitals: * Physical Examination: Assessment: * Assessment: 1. H ypothyroidism - E03.9 (Primary) Plan: * Treatment: 2. O thers Start Levothyroxine Sodium Tablet, 50 MCG, 1 tablet in the morning on an empty stomach, Orally, Once a day, 30 days, 30, Refills 11. * Procedure Codes: * true * Date: Generated for Gallito weaver/Erica/Yazan on: 0 02/18/2025 02:02 PM EDT
--- OUTSIDE RECORDS SUMMARY | 2025-01-09 11:39 | XMS_ITS ---
Author Organization [facility] in [place] Address [address] [place] [address] Care Team Providers Care Accounting Systems Manager Name Role Phone José Falcon Primary Care Provider REASON FOR VISIT labs Medications Medication SIG (Take, Route, Frequency, Duration) Notes Start Date End Date Status Liothyronine Sodium 5 MCG 1 tablet on an empty stomach Orally Once a day for 30 days 01/11/2025 Active Encounters Encounter Location Date Provider Diagnosis [facility] [address] [place] [address] 01/09/2025 José Falcon Hypothyroidism E03.9 Assessments Encounter Date Diagnosis (ICD Code) Assessment Notes Treatment Notes Treatment Clinical Notes Section Notes 01/09/2025 Hypothyroidism (ICD-10 - E03.9) Plan Of Treatment Medication Medication Name Sig Start Date Stop Date Notes Liothyronine Sodium 5 MCG 1 tablet on an empty stomach Orally Once a day for 30 days 01/11/2025 Pending Test Test Name Order Date THYROID PANEL (T4/TSH/FREE T3) Progress Notes * Mor MALLOY BDOB: [birth year] (69 yo M)Acc No.[id number]:01/09/2025 Patient: Jacqueline REIDMaxMor :1955 A ge:69 Y S ex:Male Address:[address] [place] [address] * Refills Start Liothyronine Sodium Tablet, 5 MCG, Orally, 30, 1 tablet on an empty stomach, Once a day, 30 days, Refills=1 Subjective: * Chief Complaints: * L abs * Medical History: * Surgical History: * Hospitalization/Major Diagno stic Procedure: * Medications: Objective: * Vitals: * Physical Examination: Assessment: * Assessment: 1. H ypothyroidism - E03.9 (Primary) Plan: * Treatment: 2. O thers Start Liothyronine Sodium Tablet, 5 MCG, 1 tablet on an empty stomach, Orally, Once a day, 30 days, 30, Refills 1. * Procedure Codes: * true * Date: Generated for Gallito weaver/Erica/Ivonneitting on: 02/18/2025 02:00 PM EDT
--- OUTSIDE RECORDS SUMMARY | 2025-02-18 14:01 | XMS_ITS | Patient Health Record ---
Author Organization [facility] in [place] Address [address] [place] [address] Care Team Providers Care Interface Control Officer Name Role Phone José Falcon Primary Care Provider Allergies No Known Allergies Results Component Value Reference Range Notes FREE T3 Reviewed date:11/02/2024 02:16:27 PM Interpretation: Performing Lab: Notes/Report: [facility] , Free T3 2.42 2.18-3.98 pg/mL Performing Lab: see note ML - [facility] LB GLYCOHEMOGLOBIN A1C Reviewed date:11/02/2024 02:16:28 PM Interpretation: Performing Lab: Notes/Report: [facility] , Glycohemoglobin A1C 5.6 4.5-6.2 % ADA THERAPEUTIC TARGET < 7.0 > 7.0 ADA RECOMMENDED LIMIT 4.0 - 6.0 ACTION SUGGESTED Estimated Average Glucose 114 Performing Lab: see note ML - [facility] LB LIPID PROFILE Reviewed date:11/02/2024 02:16:28 PM Interpretation: Performing Lab: Notes/Report: [facility] , Triglycerides 79 <=150 mg/dL Cholesterol [...] RISK Performing Lab: see note ML - [facility] LB PROF 14(COMP METB) Reviewed date:11/02/2024 02:16:28 PM Interpretation: Performing Lab: Notes/Report: [facility] , Sodium 140 136-145 mmol/L Potassium [...] 1.1 Performing Lab: see note ML - [facility] LB T4 Reviewed date:11/02/2024 02:16:28 PM Interpretation: Performing Lab: Notes/Report: [facility] , T4 Thyroxine 4.40 4.50-12.10 ug/dL Performing Lab: see note ML - [facility] LB TSH Reviewed date:11/02/2024 02:16:28 PM Interpretation: Performing Lab: Notes/Report: [facility] , Thyroid Stimulating Hormone 3.632 0.358-3.740 u IU/mL Performing Lab: see note ML - [facility] LB Occult Blood* Reviewed date:11/04/2024 07:34:44 PM Interpretation: Performing Lab: Notes/Report: [facility] , Occult Blood Positive Performing Lab: see note ML - [facility] FREE T3 Reviewed date:12/10/2024 07:05:09 PM Interpretation: Performing Lab: Notes/Report: [facility] , Free T3 2.06 2.18-3.98 pg/mL Performing Lab: see note ML - [facility] LB T4 Reviewed date:12/10/2024 07:05:09 PM Interpretation: Performing Lab: Notes/Report: [facility] , T4 Thyroxine 3.60 4.50-12.10 ug/dL Performing Lab: see note ML - [facility] LB TSH Reviewed date:12/10/2024 07:05:09 PM Interpretation: Performing Lab: Notes/Report: [facility] , Thyroid Stimulating Hormone 2.283 0.358-3.740 u IU/mL Performing Lab: see note ML - [facility] LB FREE T3 Reviewed date:01/09/2025 03:40:42 PM Interpretation: Performing Lab: Notes/Report: [facility] , Free T3 1.85 2.18-3.98 pg/mL Performing Lab: see note ML - [facility] LB T4 Reviewed date:01/09/2025 03:40:42 PM Interpretation: Performing Lab: Notes/Report: [facility] , T4 Thyroxine 4.90 4.50-12.10 ug/dL Performing Lab: see note ML - [facility] LB TSH Reviewed date:01/09/2025 03:40:42 PM Interpretation: Performing Lab: Notes/Report: [facility] , Thyroid Stimulating Hormone 1.730 0.358-3.740 u IU/mL Performing Lab: see note ML - [facility] LB PSA SCREENING Reviewed date:11/02/2024 02:16:28 PM Interpretation: Performing Lab: Notes/Report: [facility] , Prostate Specific Antigen Scrn 0.74 <=4.00 ng/mL Performing Lab: see note ML - [facility] LB CBC AUTO DIFF Reviewed date:11/02/2024 02:16:27 PM Interpretation: Performing Lab: Notes/Report: [facility] , White Blood Count 6.6 4.0-11.0 [...] 3/uL Performing Lab: see note ML - [facility] LB Reason For Referral Diagnosis 1 Positive occult stoo l blood test (R19.5) Referral Organization [facility] Referring Provider First Name José Referring Provider Last Name Terrie Referring Provider Speciality Family [facility] dalia Referred Provider Samy Hunter Referred Provider Specialty General Surg promise Referral Priority Routine Medications Medication SIG (Take, Route, Frequency, Duration) Notes Start Date End Date Status Diclofenac Sodium 75 MG TAKE 1 TABLET TW ICE A DAY for 90 days Active Levothyroxine Sodium 50 MCG 1 tablet in the morning on an empty stomach Orally Once a day for 30 days 12/11/2024 Active Baclofen 20 MG TAKE ONE TO TWO TABL ETS BY MOUTH AT BEDTIME for 90 Active Liothyronine Sodium 5 MCG 1 tablet on an empty stomach Orally Once a day for 30 days 01/11/2025 Active Social History Tobacco Use: Social History [...] Risk Notes Problem Attention deficit hyperactivity disorder (392048594) ADHD (attention deficit hyperactivity disorder) (314.01) Active confirmed Problem Palpitations (72223588) Palpitations (R00.2) Active confirmed Problem Hypothyroidism (61484440) Hypothyroidism (E03.9) Active confirmed Problem Eczema (29355514) Eczema (L30.9) Active confirm ed Problem Lumbar radiculopathy (777542170) Radiculopathy of lumbar region (M54.16) Active confirmed Problem Arthralgia (51016088) Arthralgia (M25.50) Active confirmed Problem Localized, primary osteoarthritis of the pelvic region and thigh (206849059) Primary osteoarthritis of left hip (M16.12) Active confirmed Problem Acne rosacea (032052103) Acne rosacea (L71.9) Active confirmed Problem Laboratory test result abnormal (056495414) Abnormal laboratory test result (R89.9) Active confirmed Problem Osteoarthritis of knee (592431288) Knee osteoarthritis (M17.10) Active confirmed Problem Diabetes mellitus (13553084) Diabetes mellitus (E11.9) Active confirmed Problem 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, 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 Vital Signs Blood pressure diastolic 86 mm Hg 11/02/2024 Height 70 in 11/02/2024 Blood pressure systolic 138 mm Hg 11/02/2024 Weight 257 lbs 11/02/2024 BMI 36.87 kg/m2 11/02/2024 Procedures Procedure Date Ordered Date Performed Result Body Sit e Colonoscopy 12/02/2024 undefined Encounters Encounter Location Date Provider Diagnosis [facility] [address] [place] [address] 04/08/2024 José Falcon [facility] [address] [place] [address] 11/02/2024 José Falcon Abnormal laboratory test result R89.9 [facility] [address] [place] [address] 11/04/2024 José Hoy Positive occult stoo l blood test R19.5 [facility] [address] [place] [address] 12/10/2024 José Hoy Hypothyroidism E03.9 [facility] [address] [place] [address] 01/09/2025 José Hoy Hypothyroidism E03.9 [facility] [address] [place] [address] 11/16/2024 José Hoy [facility] [address] [place] [address] 11/02/2024 José Hoy Palpitations R00.2 ; Diabetes mellitus E11.9 and Radiculopathy of lumbar region M54.16 Assessments Encounter Date Diagnosis (ICD Code) Assessment Notes Treatment Notes Treatment Clinical Notes Section Notes 11/02/2024 Palpitations (ICD-10 - R00.2) 11/02/2024 Diabetes mellitus (ICD-10 - E11.9) 11/02/2024 Abnormal laboratory test result (ICD-10 - R89.9) 11/04/2024 Positive occult stool blood test (ICD-10 - R19.5) 12/10/2024 Hypothyroidism (ICD-10 - E03.9) 01/09/2025 Hypothyroidism (ICD-10 - E03.9) 11/02/2024 Radiculopathy of lumbar region (ICD-10 - [...] ACCESS PPO PLUS LOCAL PLAN [address] [place] [address] [id number] Mor Malloy Self - patient is the insured Medical (General) History Medical History History ICD Code Acne rosacea L71.9 ADHD (attention deficit hyperactivity di sorder) 314.01 Amputation of finger without complicatio n, initial encounter S68.119A Arthralgia M25.50 Eczema L30.9 Diabetes mellitus E11.9 Palpitations R00.2 Shingles B02.9 spondylolisthesis rheumatic fever Surgical History Surgery Date(Month/Year) colonoscopy dr hunter 12/02/2024 right total knee arthroplasty, surgeon Austin Jensen Rt rotator cuff repair Right Meniscus Repair Cataract Extraction history of tonsillectomy Bilateral L5 transforaminal epidural [place] [facility] [place]/29/2024 Lt rotator cuff repair
--- OUTSIDE RECORDS SUMMARY | 2025-02-18 14:01 | XMS_ITS | Encounter Summary ---
Author Organization [facility] Address [address], [address] [place] [address] Care Team Providers Care Lamination Builder Name Role Phone Ashutosh Falcon MD Primary Care Provider [phone] Encounter Details Date Type Department Care Team (Late st Contact Info) Description 01/14/2013 Post-op Telephone [facility] General Surgery [address] [place], [place] [id number] Romy Santana RN Social History Tobacco Use [...] on filedocumented in this encounter Care Teams Lamination Builder Relationship Specialty Start Date End Date Ashutosh Falcon MD [address] [place] [address] PCP - General 01/12/13 documented as of this encounter
--- OUTSIDE RECORDS SUMMARY | 2025-02-18 14:02 | XMS_ITS | Clinical Summary ---
Author Organization [facility] Address [address], [address] [place] [address] Care Team Providers Care Oyster Shipper Name Role Phone Ashutosh Falcon MD Primary Care Provider [phone] Allergies No known active allergies Medications cyclopentolate [...] Plan of Treatment Not on file Insurance [place] [employer] Advance Directives * Full Code (Latest Code Status on File) Date Activated Date Inactivated Comments 06/09/2018 1:22 AM 06/11/2018 3:22 PM Care Teams Oyster Shipper Relationship Specialty Start Date End Date Ashutosh Falcon MD [address] [place] [address] PCP - General 01/12/13
[2025-02-18 15:18] LABS: Free T3 2.15 pg/mL (2.18-3.98); Thyroid Stimulating Hormone 1.073 uIU/mL (0.358-3.740)
== END 2025-02-18 13:58 | disposition home or self-care (01) ==
LOC: LAB 13:58
PROVIDERS: PCP Family Medicine; Visit Provider Family Medicine
DX: E03.9 Hypothyroidism, unspecified (principal)
CPT/HCPCS: 36415; 84436; 84443; 84481